=== PATIENT | female | born 1965 | race Caucasian/White ===

== ENCOUNTER 2021-05-26 19:40 | Emergency (ER) | payer BC ==
[2021-05-26] MEDS ORDERED: Bupivacaine 0.5% 10 ML VIAL ONE (19:58)
[2021-05-26] MEDS ORDERED: Ketorolac Tromethamine 30 MG/ML VIAL ONE (20:27)
[2021-05-26] MEDS ORDERED: Ketamine 50 MG/ML (10ML VIAL) ONE (20:39)
[2021-05-26] MEDS ORDERED: Midazolam HCl 2 mg/2 ml Vial ONE (20:40)
[2021-05-26] MEDS ORDERED: Fentanyl 100 MCG/2 ML VIAL ONE (21:08)
[2021-05-26] MEDS ORDERED: Ondansetron PF 4 MG/2 ML Vial ONE ×3 (21:15→22:12)
== END 2021-05-26 22:50 | disposition home or self-care (01) ==
LOC: BURERS 19:40
DX: S43.015A Anterior dislocation of left humerus, initial encounter (principal); X50.1XXA Overexertion from prolonged static or awkward postures, initial encounter
CPT/HCPCS: 23650; 94760; 96374; 96375; 96376; 99152; 99153; J1885; J2250; J2405; J3010; J3490